=== PATIENT | female | born 1950 | race Caucasian/White ===

== ENCOUNTER 2023-04-25 17:05 | Emergency (ER) | payer MEDICARE, BC ==
[~2023-04-25] VITALS: Ht 154.9 cm; Wt 89.4 kg
[~2023-04-25 17:05] MED LIST: CEPHALEXIN500 M1 PO; FOSAMAX70 M1 PO; HYDR25T PO; LANTUS SOL100 UNIT/1 SC; LASIX40 MG PO; LIPITOR80 MG PO; LOSARTAN POTASS25 M1 PO; METFORMIN HYDR500 MG PO; NEURONTIN300 MG PO; NOVOLOG FL100 UNIT/2 SC; OMEGA-31000 M1 PO; PLAVIX75 M1 PO; TORSEMIDE20 MG PO; VALSARTAN320 MG PO
[2023-04-25 17:59] LABS: BASO % 0.2 % (0.0-1.0); EOS # 0.1 10*3/uL (0.0-0.4); EOS % 0.5 % (1.0-4.0); HEMATOCRIT 43.7 % (37.0-47.0); LYMPH # 0.6 10*3/uL (1.3-4.4); LYMPH % 3.7 % (27.0-41.0); MEAN CELL VOLUME 93.6 fl (81.0-99.0); MEAN CORPUSCULAR HGB 29.1 pg (27.0-31.0); MEAN CORPUSCULAR HGB CONC 31.1 g/dl (33.0-37.0); MEAN PLATELET VOLUME 11.1 fl (9.6-12.3); MONO # 1.1 10*3/uL (0.1-1.0); MONO % 7.5 % (3.0-9.0); NEUT # 13.3 10*3/uL (2.3-7.9); NEUT % 87.8 % (47.0-73.0); PLATELET COUNT AUTOMATED 302 10*3/uL (130-400); RED BLOOD COUNT 4.67 10*6/uL (4.10-5.10); RED CELL DISTRI WIDTH 13.2 % (0-14.5); WHITE BLOOD COUNT 15.1 10*3/uL (4.8-10.8)
[2023-04-25 18:15] LABS: ALKALINE PHOSPHATASE 70 U/L (46-116); BUN 25 mg/dl (9-23); CHLORIDE 102 mmol/L (98-107); LIPASE 26 U/L (12-53); POTASSIUM 4.2 mmol/L (3.4-5.1); SGPT/ALT 21 U/L (5-49); TOTAL PROTEIN 7.2 gm/dL (6.0-8.0)
[2023-04-25] MEDS ORDERED: ONDANSETRON4 MG SL (20:51)
[2023-04-25] MEDS ORDERED: Ondansetron 4 MG 2 TAB ED PACK PO SCH ×2 (20:55)
[2023-04-25] MEDS ORDERED: Ondansetron Hydrochloride 4 MG TAB PO ONE (20:55)
== END 2023-04-25 21:35 | disposition home or self-care (01) ==
LOC: ED 17:05
PROVIDERS: Nurse Practitioner
DX: B34.9 Viral infection, unspecified (principal); Z20.822 Contact with and (suspected) exposure to COVID-19; R11.0 Nausea; R53.1 Weakness; Z88.8 Allergy status to other drugs, medicaments and biological substances; Z79.899 Other long term (current) drug therapy; Z79.4 Long term (current) use of insulin; Z79.2 Long term (current) use of antibiotics; Z90.711 Acquired absence of uterus with remaining cervical stump; Z95.5 Presence of coronary angioplasty implant and graft